=== PATIENT | male | born 1960 | race Caucasian/White ===

== ENCOUNTER 2022-08-09 08:41 | Day surgery (SDC) | payer BC ==
[2022-08-08 09:57] VITALS: BMI 29.9
[~2022-08-09 08:41] MED LIST: Bupivacaine PF 0.5% 30 ML VIAL ONE; EPINEPHrine 1 MG/ML AMP ONE
[2022-08-09] MEDS ORDERED: Scopolamine 1.5 mg/72 hour Patch ONE (09:40)
[2022-08-09] MEDS ORDERED: CEFAZOLIN 2 GM VIAL ONE (10:37)
[2022-08-09] MEDS ORDERED: PROPOFOL 20 ML ONE ×2 (10:42→10:56)
[2022-08-09] MEDS ORDERED: Fentanyl 100 MCG/2 ML VIAL ONE ×2 (10:42→11:36)
[2022-08-09] MEDS ORDERED: Acetaminophen 325 MG TAB PO PRN (10:44)
[2022-08-09] MEDS ORDERED: HYDROcodone/Acetaminophen 5/325 mg Tablet PO PRN (10:44)
[2022-08-09] MEDS ORDERED: Ondansetron PF 4 MG/2 ML Vial ONE (10:44)
[2022-08-09] MEDS ORDERED: Dexamethasone 4 mg/ml Vial ONE (10:44)
[2022-08-09] MEDS ORDERED: Rocuronium Bromide 10 MG/ML (10ML VIAL) ONE (10:44)
[2022-08-09] MEDS ORDERED: Metoclopramide HCl 10 MG/2 ML VIAL ONE (11:08)
[2022-08-09] MEDS ORDERED: Ketorolac Tromethamine 30 MG/ML VIAL ONE (11:22)
[2022-08-09] MEDS ORDERED: Glycopyrrolate 0.2 MG/ML 5 ML SYRINGE ONE (11:22)
== END 2022-08-09 13:05 | disposition home or self-care (01) ==
LOC: CSHSDC 08:41
PROVIDERS: ATTEND Surgery
PROC: 0WQF0ZZ Repair Abdominal Wall, Open Approach (ICD-10-PCS; principal; 2022-08-09)
DX: K42.9 Umbilical hernia without obstruction or gangrene (principal); I10 Essential (primary) hypertension; Z79.899 Other long term (current) drug therapy; Z20.822 Contact with and (suspected) exposure to COVID-19; Z98.890 Other specified postprocedural states
CPT/HCPCS: J0171; J0690; J1100; J1885; J2405; J2704; J2765; J3010; S0020

== ENCOUNTER 2024-09-03 08:35 | Outpatient (CLI) | payer MEDICARE | END 2024-09-03 08:36 | disposition home or self-care (01) | LOC: CSHSLEEP 08:35 | PROVIDERS: ATTEND Family Medicine | DX: G47.33 Obstructive sleep apnea (adult) (pediatric) (principal); R53.83 Other fatigue; R09.89 Other specified symptoms and signs involving the circulatory and respiratory systems; G47.61 Periodic limb movement disorder | CPT/HCPCS: 95811 ==